=== PATIENT | male | born 1990 | race African-American/Black ===

== ENCOUNTER 2022-05-26 20:00 | Inpatient (IN) | payer BC ==
[~2022-05-26] VITALS: Ht 182.9 cm; Wt 133.0 kg
[2022-05-26] MEDS ORDERED: DULO-113 PO (21:16)
[2022-05-26] MEDS ORDERED: AMLO10TA55 PO (21:16)
[2022-05-26] MEDS ORDERED: ADAL80PE2 SQ (21:16)
[2022-05-26] MEDS ORDERED: BUSP15TA3 PO (21:16)
[2022-05-26] MEDS ORDERED: TRAZ-257 PO (21:16)
[2022-05-26 22:01] LABS: LYMPHOCYTES # (AUTO) 1.6 K/uL (1.0-4.8)
[2022-05-26 22:07] LABS: BASOPHILS % (AUTO) 0.3 % (0.0-2.0); EOSINOPHILS % (AUTO) 0.8 % (1.0-6.0); HEMATOCRIT 42.5 % (41-53); HEMOGLOBIN 14.1 g/dL (13.5-17.5); LYMPHOCYTES % (AUTO) 12.1 % (22.0-44.0); MEAN CORPUSCULAR HEMOGLOBIN 29.3 pg (26.0-34.0); MEAN CORPUSCULAR VOLUME 89 fL (80-100); MONOCYTES # (AUTO) 0.6 K/uL (0.1-1.0); MONOCYTES % (AUTO) 4.7 % (2.0-9.0); NEUTROPHILS % (AUTO) 82.1 % (40.0-70.0); PLATELET COUNT (AUTO) 272 K/uL (150-450); RED CELL DISTRIBUTION WIDTH 14.6 % (11.5-14.5)
[2022-05-26 22:08] LABS: COVID AG,FIA SOURCE NASAL SWAB
[2022-05-26 22:21] LABS: ANION GAP 6 mmol/L (8-16); CALCIUM, TOTAL 8.7 mg/dL (8.8-10.5); CARBON DIOXIDE 28 mmol/L (22-29); CHLORIDE 103 mmol/L (98-107); CREATININE 0.99 mg/dL (0.60-1.30); GLOMERULAR FILTR. RATE CALC > 60 mL/min (>60); GLUCOSE,RANDOM 100 mg/dL (70-110); POTASSIUM 3.6 mmol/L (3.5-5.1); SODIUM SERUM 137 mmol/L (136-145); UREA NITROGEN, BLOOD 19 mg/dL (7-18)
[2022-05-26 22:23] LABS: AMPHET/METH SCREEN,URINE NEGATIVE (NEGATIVE); BARBITURATE SCREEN, URINE NEGATIVE (NEGATIVE); BENZODIAZEPINES SCREEN,URINE NEGATIVE (NEGATIVE); CANNABINOID SCREEN,URINE POSITIVE (NEGATIVE); COCAINE SCREEN,URINE NEGATIVE (NEGATIVE); METHADONE SCREEN, URINE NEGATIVE (NEGATIVE); OPIATE SCREEN,URINE NEGATIVE (NEGATIVE); PHENCYCLIDINE SCREEN,URINE NEGATIVE (NEGATIVE)
[2022-05-26 22:24] LABS: ALANINE AMINOTRANSFERASE 50 U/L (12-78); ALBUMIN 3.5 g/dL (3.4-5.0); ALKALINE PHOSPHATASE 112 U/L (46-116); ASPARTATE AMINOTRANSFERASE 31 U/L (15-37); BILIRUBIN,TOTAL 0.6 mg/dL (0.1-1.0)
[2022-05-26] MEDS ORDERED: RisperiDONE 1 MG TABLET PO ONE (22:45)
[2022-05-26] MEDS ORDERED: LORazepam 2 MG TABLET PO PRN (22:45)
[2022-05-26] MEDS ORDERED: OLANZapine 5 MG RAPDIS TABLET PO PRN (22:45)
[2022-05-26] MEDS ORDERED: ZOLPIDEM TARTRATE 10 MG TABLET PO PRN (22:45)
[2022-05-27 02:29] VITALS: BP 141/100
[2022-05-27 05:26] LABS: APPEARANCE,URINE TURBID (CLEAR); BILIRUBIN,URINE NEGATIVE (NEGATIVE); GLUCOSE, URINE (UA) NEGATIVE (NEGATIVE); KETONES,URINE NEGATIVE (NEGATIVE); LEUKOCYTE ESTERASE ,URINE NEGATIVE (NEGATIVE); NITRATE,URINE NEGATIVE (NEGATIVE); OCCULT BLOOD,URINE NEGATIVE (NEGATIVE); PROTEIN,URINE TRACE mg/dL (NEGATIVE); SPECIFIC GRAVITIY, URINE 1.029 (1.003-1.030); UROBILINOGEN,URINE <=1.0 mg/dL (<=1.0)
[2022-05-27 08:20] VITALS: BP 144/93
[2022-05-27] MEDS ORDERED: ACETAMINOPHEN 325 MG TABLET PO PRN (14:00)
[2022-05-27] MEDS ORDERED: MAGNESIUM HYDROXIDE SUSPENSION 30 ML UDCUP PO PRN (14:00)
[2022-05-27] MEDS ORDERED: HydrOXYzine PAMOATE 50 MG CAPSULE PO PRN (14:00)
[2022-05-27] MEDS ORDERED: LOPERAMIDE HCL 2 MG CAPSULE PO PRN (14:00)
[2022-05-27] MEDS ORDERED: PROMETHAZINE HCL 25 MG TABLET PO PRN (14:00)
[2022-05-27] MEDS ORDERED: MAG HYDROX/AL HYDROX/SIMETH ES 30 ML SUSPENSION UDCUP PO PRN (14:00)
[2022-05-27] MEDS ORDERED: GuaiFENesin/D-METHORPHAN [SUGAR-FREE] 200-20MG/10 ML SYRUP UDCUP PO PRN (14:00)
[2022-05-27] MEDS ORDERED: TUBERCULIN, PURIFIED PROTEIN DERIVATIVE 5 TU/0.1 ML SYRINGE ID ONE (14:00)
[2022-05-27] MEDS ORDERED: DULoxetine HCL 30 MG CAPSULE PO ONE (15:30)
[2022-05-27] MEDS: THIAMINE 100 MG TABLET PO SCH (16:10)
[2022-05-27] MEDS: BusPIRone HCL 15 MG TABLET PO SCH (16:10)
[2022-05-27 17:00] VITALS: BP 150/93
[2022-05-27] MEDS: MELATONIN 5 MG TABLET PO SCH (20:09)
[2022-05-27] MEDS: TraZODone HCL 100 MG TABLET PO SCH (20:09)
[2022-05-27] MEDS ORDERED: TraZODone HCL 100 MG TABLET PO SCH (21:00)
[2022-05-28 07:10] LABS: HEMOGLOBIN A1C 5.3 % (3.8-5.6)
[2022-05-28 07:17] LABS: CHOL/HDL RATIO 3.9 (4.2-7.3); FREE T4 (FREE THYROXINE) 1.12 ng/dL (0.76-1.46); THYROID STIMULATING HORMONE 1.27 uIU/mL (0.36-3.74)
[2022-05-28 08:00] VITALS: BP 141/95
[2022-05-28] MEDS: AmLODIPine BESYLATE 10 MG TABLET PO SCH (08:23)
[2022-05-28] MEDS: NALTREXONE HCL 50 MG TABLET PO SCH (08:23)
[2022-05-28] MEDS: OMEGA-3/DHA/EPA/FISH OIL 1,000 MG CAPSULE PO SCH (08:24)
[2022-05-28] MEDS: BusPIRone HCL 15 MG TABLET PO SCH ×2 (08:24→16:18)
[2022-05-28] MEDS: FOLIC ACID 1 MG TABLET PO SCH (08:24)
[2022-05-28] MEDS: THIAMINE 100 MG TABLET PO SCH ×2 (08:24→16:18)
[2022-05-28] MEDS: MULTIVITAMINS WITH MINERALS, THERAPEUTIC TABLET PO SCH (08:24)
[2022-05-28] MEDS ORDERED: DULoxetine HCL 30 MG CAPSULE PO SCH ×2 (09:00)
[2022-05-28] MEDS ORDERED: DULoxetine HCL 20 MG CAPSULE PO SCH (09:00)
[2022-05-28] MEDS ORDERED: OMEG-108 PO (14:50)
[2022-05-28] MEDS ORDERED: TRAZ-257 PO (14:50)
[2022-05-28] MEDS ORDERED: BUSP15 PO (14:50)
[2022-05-28] MEDS ORDERED: MELA5TAB40 PO (14:50)
[2022-05-28] MEDS ORDERED: DULO20CA71 PO (14:50)
[2022-05-28 16:09] VITALS: BP 141/78
[2022-05-28] MEDS: MELATONIN 5 MG TABLET PO SCH (20:35)
[2022-05-28] MEDS: TraZODone HCL 100 MG TABLET PO SCH (20:35)
[2022-05-29 05:56] VITALS: BP 135/90
[2022-05-29 08:00] VITALS: BP 131/88
[2022-05-29] MEDS ORDERED: AMLO10TA55 PO (08:12)
[2022-05-29] MEDS ORDERED: DULoxetine HCL 60 MG CAPSULE PO SCH (09:00)
[2022-05-29] MEDS: THIAMINE 100 MG TABLET PO SCH (09:09)
[2022-05-29] MEDS: MULTIVITAMINS WITH MINERALS, THERAPEUTIC TABLET PO SCH (09:09)
[2022-05-29] MEDS: OMEGA-3/DHA/EPA/FISH OIL 1,000 MG CAPSULE PO SCH (09:09)
[2022-05-29] MEDS: AmLODIPine BESYLATE 10 MG TABLET PO SCH (09:09)
[2022-05-29] MEDS: NALTREXONE HCL 50 MG TABLET PO SCH (09:09)
[2022-05-29] MEDS: FOLIC ACID 1 MG TABLET PO SCH (09:10)
[2022-05-29] MEDS: BusPIRone HCL 15 MG TABLET PO SCH (09:10)
== END 2022-05-29 14:00 | disposition home or self-care (01) | DRG 885 ==
LOC: EMS 20:00 → UNDOADMIN 23:09 → 3EI 23:09
PROVIDERS: ADMIT Psychiatry & Neurology Psychiatry; ATTEND Psychiatry & Neurology Psychiatry
DX: F33.2 Major depressive disorder, recurrent severe without psychotic features (principal); F06.30 Mood disorder due to known physiological condition, unspecified; R45.851 Suicidal ideations; I10 Essential (primary) hypertension; J45.909 Unspecified asthma, uncomplicated; M19.90 Unspecified osteoarthritis, unspecified site; L40.9 Psoriasis, unspecified; Z20.822 Contact with and (suspected) exposure to COVID-19; Z55.9 Problems related to education and literacy, unspecified; Z59.9 Problem related to housing and economic circumstances, unspecified; Z63.9 Problem related to primary support group, unspecified; Z65.3 Problems related to other legal circumstances; Z82.49 Family history of ischemic heart disease and other diseases of the circulatory system; Z83.3 Family history of diabetes mellitus
CPT/HCPCS: 80053; 80061; 81003; 83036; 84439; 84443; 85025; 86592; 99285; G0480; Q9967